=== PATIENT | male | born 1955 | race Caucasian/White ===

== ENCOUNTER 2019-04-20 11:39 | Emergency (ER) | payer MEDICAID ==
[~2019-04-20] VITALS: Ht 167.6 cm; Wt 75.7 kg
[2019-04-20 12:16] VITALS: Ht 167.6 cm; Wt 75.7 kg
[2019-04-20 16:42] VITALS: BP 132/74
== END 2019-04-20 16:42 | disposition home or self-care (01) ==
LOC: ED 11:39
DX: M54.16 Radiculopathy, lumbar region (principal); Z76.0 Encounter for issue of repeat prescription